=== PATIENT | male | born 1990 | race Caucasian/White ===

== ENCOUNTER 2021-01-06 19:46 | Observation (INO) | payer OTHER, SELFPAY ==
--- NOTE | ~2021-01-06 | CT_ITS ---
EXAMINATION: CT abdomen pelvis w con INDICATION: Right lower quadrant pain TECHNIQUE: Computed tomographic images of the abdomen and pelvis were obtained after the administrati on of 100 cc of Omnipaque 350 intravenous contrast. The dose-length product (DLP) was 766.87 mGy-cm. Automated exposure control and iterative reconstruction technique were employed. COMPARISON: None available FINDINGS: The lung bases are clear. The heart size is normal. The liver, spleen, pancreas, gallbladde r, and adrenal glands are normal. The kidneys are unremarkable. There is an appendicolith in the enla rged appendix which measures up to 11 mm. There is inflammatory fluid and edematous stranding of the periappendiceal fat without evidence of perforation or abscess. No pathologically enlarged abdominal or pelvic lymph nodes are identified. There are no dilated loops of bowel. IMPRESSION: 1. Acute appendicitis, uncomplicated. These findings were discussed with Dr. Deuce Uriostegui DO in the Emergency Department at 2120 hours on 01/06/2021. Reviewed, dictated and finalized at location A. IMPRESSION: 1. Acute appendicitis, uncomplicated. These findings were discussed with Dr. Miriam Uriostegui DO in the Emergency Department at 2120 hours on 01/06/2021.
[2021-01-06 20:07] VITALS: BP 128/77; PULSE 93; RESP 18; TEMP 36.9; O2SAT 97
--- NOTE | 2021-01-06 20:27 | ED.ABDPAIN ---
HPI - Abdominal Pain General Chief Complaint: Abdominal Pain Stated Complaint: upper abd pain, fever Time Seen by Provider: 01/06/21 20:19 Source: RN notes reviewed History of Present Illness HPI narrative: Patient presents to emergency department from urgent care for abdominal pain. Patient symptoms began yesterday states pain in the right lower quadrant described as sharp and stabbing. States pain does not radiate. States has been associate with a fever up to 101 at home states he took ibuprofen yesterday but nothing today. Denies any chest pain, shortness of breath nausea, vomiting, diarrhea or any other symptom Related Data Home Medications Medication Instructions Recorded Confirmed No Home Medications 02/24/20 02/24/20 Allergies Allergy/AdvReac Type Severity Reaction Status Date / Time No Known Allergies Allergy Verified 01/06/21 20:35 Review of Systems Review of Systems: General: Reports fever Eyes: Denies eye pain or visual change ENT: Denies congestion Respiratory: Denies shortness of breath or cough CV: Denies chest pain or palpitations GI: See HPI Musculoskeletal: Denies back pain or muscle pain Neuro: Denies numbness, tingling, weakness or focal weakness Skin: Denies rash Except as documented, all other systems reviewed and negative [facility] Past Medical History Medical History (Updated 01/06/21 @ 21:40 by Deuce Uriostegui DO) Patient denies significant medical history Family History Family History Father Carcinoma of colon Other Diabetes mellitus Family history of malignant neoplasm of breast Malignant neoplasm of prostate Social History Social History Smoking status: Never smoker Alcohol intake: current Exam Narrative: APPEARANCE: No acute distress, nontoxic, resting in bed HEENT: Normocephalic, atraumatic, OMM RESPIRATORY: No respiratory distress, clear to auscultation bilaterally with no rhonchi wheezing or rales CARDIOVASCULAR: RRR s murmur ABDOMINAL: Soft nondistended tender palpation right lower quadrant no tenderness right upper quadrant, left upper quadrant left lower quadrant no rebound or guarding MUSCULOSKELETAl: Moves all extremities. No clubbing, cyanosis or edema. NEURO: Awake and alert. Following commands, speech normal, no focal deficits SKIN:: Warm, dry. Normal Color PSYCHIATRIC: Normal affect/mood Course Course Emergency Course: Called and discussed with Dr. Victoria presentation and work-up. At this time request patient admitted his service started on Zosyn Discussed with patient and family results of workup and diagnosis. Discussed need for admission. Patient and family understand and agree to current treatment plan Vital Signs Vital signs: Vital Signs Temperature 98.5 F 01/06/21 20:07 Pulse Rate 93 01/06/21 20:07 Respiratory Rate 18 01/06/21 20:07 Blood Pressure 128/77 01/06/21 20:07 Pulse Oximetry 97 01/06/21 20:07 Temperature 98.5 F 01/06/21 20:07 Pulse Rate 93 01/06/21 20:07 Respiratory Rate 18 01/06/21 20:07 Blood Pressure 128/77 01/06/21 20:07 Pulse Oximetry 97 01/06/21 20:07 MDM - Abdominal Pain Lab Data Result diagrams: 01/06/21 20:19 01/06/21 20:19 Labs: Lab Results 01/06/21 01/06/21 01/06/21 Range/Units 20:19 20:19 21:19 WBC 11.1 H (4.5-10.0) K/mm3 RBC 5.14 (4.6-6.20) M/mm3 Hgb 15.7 (14.0-18.0) g/dL Hct 44.3 (42.0-52.0) % MCV 86.2 (80-100) fl MCH 30.5 (26-34) pg MCHC 35.4 (32-36) g/dl RDW 12.1 (11.5-14.5) % Plt Count 214 (150-375) k/mm3 MPV 8.9 (7.4-10.4) fl Immature Gran % (Auto) 0.4 (0-0.5) % Neut % (Auto) 75.8 H (45.5-73.1) % Lymph % (Auto) 11.5 L (18.3-44.2) % Whitley % (Auto) 10.9 H (2.6-8.5) % Eos % (Auto) 0.9 (0-4.4) % Baso % (Auto) 0.5 (0.2-1.2) % Lymph # (Auto) 1.
[2021-01-06 20:28] LABS: Basophils Absolute Auto 0.1 K/mm3 (0.0-0.1); Basophils Percent Auto 0.5 % (0.2-1.2); Eosinophils Absolute Auto 0.1 K/mm3 (0-0.3); Eosinophils Percent Auto 0.9 % (0-4.4); Hematocrit 44.3 % (42.0-52.0); Hemoglobin 15.7 g/dL (14.0-18.0); Immature Granulocyte Absolute 0.04 K/mm3 (0.00-0.031); Immature Granulocyte Percent A 0.4 % (0-0.5); Lymphocytes Absolute Auto 1.27 K/mm3 (0.9-3.2); Lymphocytes Percent Auto 11.5 % (18.3-44.2); Mean Corpuscular HGB Conc 35.4 g/dl (32-36); Mean Corpuscular Hemoglobin 30.5 pg (26-34); Mean Corpuscular Volume 86.2 fl (80-100); Mean Platelet Volume 8.9 fl (7.4-10.4); Monocytes Absolute Auto 1.2 K/mm3 (0.1-0.6); Monocytes Percent Auto 10.9 % (2.6-8.5); Neutrophils Absolute Auto 8.4 K/mm3 (1.3-6.7); Neutrophils Percent Auto 75.8 % (45.5-73.1); Platelet Count Result 214 k/mm3 (150-375); Red Blood Count 5.14 M/mm3 (4.6-6.20); Red Cell Distribution Width 12.1 % (11.5-14.5); White Blood Count 11.1 K/mm3 (4.5-10.0)
[2021-01-06 20:38] LABS: Alanine Aminotransferase 37 U/L (4-50); Albumin Level 4.6 g/dL (3.5-5.1); Alkaline Phosphatase 104 U/L (38-126); Anion Gap 14 mmol/L (8-16); Aspartate Amino Transferase 34 U/L (17-59); Bilirubin,Total 1.6 mg/dL (0.2-1.3); Blood Urea Nitrogen 11 mg/dL (9-20); Calcium 10.8 mg/dL (8.4-10.2); Carbon Dioxide 22 mmol/L (22-30); Chloride 98 mmol/L (98-107); Estimated CRCL calculation 96 ml/min; Estimated Glomerular Filt Rate > 60; Glucose 111 mg/dL (65-110); Lipase 71 U/L (23-300); Potassium 3.8 mmol/L (3.4-5.0); Sodium 134 mmol/L (137-145)
[2021-01-06] MEDS: KETOROLAC 30 MG/ML VIAL (*BKC) IV PUSH (20:46)
[2021-01-06] MEDS: SODIUM CHLORIDE 0.9% IV 1,000 ML 999 ML IV CONT (20:46)
[2021-01-06 21:32] LABS: Add Urine Microscopic? YES; Appearance Urine Clear (Clear); Bacteria Urine Trace /hpf; Bilirubin Urine Negative (Negative); Blood Urine 1+ (Negative); Color Urine Yellow (Yellow); Glucose Urine UA Negative (Negative); Ketones Urine Trace mg/dL (Negative); Leukocyte Esterase Ur Negative LEU/UL (Negative); Mucus Urine Rare /lpf; Nitrate Urine Negative (Negative); Protein Urine Negative (Negative); RBC Urine 0-2 /hpf (0-2); Specific Grav Ur 1.012 (1.001-1.035); Squamous Epithelial Cell Urine Rare /hpf (Few); Urobilinogen Urine Negative mg/dL (<2.0)
[2021-01-06] MEDS: MORPHINE SULFATE (*CRX) 4 MG/ML INJ IV PUSH (21:54)
[2021-01-06 21:57] VITALS: BP 107/71; PULSE 82; RESP 18; TEMP 37.9; O2SAT 99
[2021-01-06 22:15] VITALS: BP 122/61; PULSE 70; RESP 20; TEMP 36.4; O2SAT 99; BMI 32.5
--- NOTE | 2021-01-06 22:25 | ADMGEN ---
This patient, Mike Roca, was admitted to Medical Room 252-01. Patient/family oriented to hospital policies and general routines including ID bracelet, bed and alarms, visiting hours, pain management, procedures, bathroom and other care routines, personal items, smoking policy, room service/diet, and visiting hours. Information on how to activate the Rapid Response Team has been discussed. Patient/Family are encouraged to report perceived risks to care and to ask questions if they do not understand what they are told or what they should do.
[2021-01-06 22:30] VITALS: PULSE 82; RESP 18; O2SAT 99
[2021-01-06] MEDS: SODIUM CHLORIDE 0.9% IV 1,000 ML 125 ML IV CONT (22:51)
[2021-01-07] VITALS (14 sets, daily range): BP systolic 103–138; BP diastolic 60–86; PULSE 80–124; RESP 12–24; TEMP 36.9–39.6; O2SAT 92–100
[2021-01-07] MEDS: SODIUM CHLORIDE 0.9% IV 1,000 ML 125 ML IV CONT (05:10)
[2021-01-07 05:46] LABS: Basophils Percent Auto 0.3 % (0.2-1.2); Eosinophils Absolute Auto 0.2 K/mm3 (0-0.3); Eosinophils Percent Auto 1.5 % (0-4.4); Hematocrit 39.4 % (42.0-52.0); Hemoglobin 13.9 g/dL (14.0-18.0); Immature Granulocyte Absolute 0.06 K/mm3 (0.00-0.031); Immature Granulocyte Percent A 0.6 % (0-0.5); Lymphocytes Absolute Auto 0.98 K/mm3 (0.9-3.2); Lymphocytes Percent Auto 9.2 % (18.3-44.2); Mean Corpuscular HGB Conc 35.3 g/dl (32-36); Mean Corpuscular Hemoglobin 30.7 pg (26-34); Mean Platelet Volume 8.9 fl (7.4-10.4); Monocytes Absolute Auto 1.4 K/mm3 (0.1-0.6); Monocytes Percent Auto 12.7 % (2.6-8.5); Neutrophils Absolute Auto 8.1 K/mm3 (1.3-6.7); Neutrophils Percent Auto 75.7 % (45.5-73.1); Platelet Count Result 192 k/mm3 (150-375); Red Blood Count 4.53 M/mm3 (4.6-6.20); White Blood Count 10.7 K/mm3 (4.5-10.0)
[2021-01-07 05:57] LABS: Alanine Aminotransferase 31 U/L (4-50); Albumin Level 3.8 g/dL (3.5-5.1); Alkaline Phosphatase 80 U/L (38-126); Anion Gap 7 mmol/L (8-16); Aspartate Amino Transferase 32 U/L (17-59); Bilirubin,Total 1.6 mg/dL (0.2-1.3); Blood Urea Nitrogen 10 mg/dL (9-20); Calcium 9.1 mg/dL (8.4-10.2); Carbon Dioxide 25 mmol/L (22-30); Chloride 104 mmol/L (98-107); Estimated CRCL calculation 97 ml/min; Estimated Glomerular Filt Rate > 60; Glucose 102 mg/dL (65-110); Potassium 4.4 mmol/L (3.4-5.0); Sodium 136 mmol/L (137-145)
--- NOTE | 2021-01-07 06:12 | PM.IMHP ---
H&P: HPI History of Present Illness Date/Time: 01/07/21 06:12 Pt is a 30 y/o M presenting to ED c/o 1-2 d h/o progressively worsening RLQ abd pain. Pt reports pain is constant, sharp, and worse c movt. Pt reports associated fevers up to 102. Pt reports poor appetite over same time span. Pt denies previous episodes. Chief Complaint: acute appendicitis Review of Systems Constitutional: Constitutional: Reports anorexia, Denies body ache(s), Denies chills, Reports fatigue, Reports fever(s), Reports lethargy, Reports malaise, Reports poor appetite, Denies weakness, Denies weight gain and Denies weight loss Eyes: Eyes: Reports no additional eye complaints ENT: Reports system reviewed and no additional complaints, except as documented Cardiovascular: Cardiovascular: Reports no additional cardiovascular complaints Respiratory: Respiratory: Reports no additional respiratory complaints Gastrointestinal: Gastrointestinal: Reports as per HPI, Reports abdominal pain, Denies belching, Denies melena, Denies hematochezia, Denies change in bowel habits, Denies coffee ground emesis, Denies constipation, Reports GI cramping, Denies diarrhea, Denies nausea, Denies vomiting and Denies hematemesis Genitourinary: Genitourinary: Reports no additional male genitourinary complaints Musculoskeletal: Musculoskeletal: Reports no additional musculoskeletal complaints Integumentary/Breasts: Skin/Breast: Reports system reviewed and no additional complaints, except as docu Neurologic: Reports system reviewed and no additional complaints, except as documented Psychiatric: Psychiatric: Reports no additional psychiatric complaints Endocrine: Endocrine: Reports no additional endocrine complaints Hematologic/Lymphatic: Hematologic/Lymphatic: Reports no additional hematologic/lymphatic complaints Allergic/Immunologic: Allergic/Immunologic: Reports no additional allergic/immunologic complaints [facility] Past Medical History Medical History Patient denies significant medical history Family History Family History Father Carcinoma of colon Other Diabetes mellitus Family history of malignant neoplasm of breast Malignant neoplasm of prostate Social History Social History Smoking status: Never smoker Alcohol intake: current Drinks per week: 4 Substance use: never Substance use type: does not use Spiritual care concerns: No Comments pt denies previous abdominal surgery Meds Home Medications and Allergies Home Medications Medication Instructions Recorded Confirmed Type No Home Medications 02/24/20 01/06/21 History Allergies Allergy/AdvReac Type Severity Reaction Status Date / Time No Known Allergies Allergy Verified 01/06/21 20:35 Vital Signs Vital Signs - 24 hr 01/06/21 20:07 01/06/21 21:57 01/06/21 22:15 Temperature 36.9 C 37.9 C H 36.4 C L Pulse Rate 93 82 70 Respiratory Rate 18 18 20 Blood Pressure 128/77 107/71 122/61 Pulse Oximetry 97 99 99 01/06/21 22:30 Temperature Pulse Rate 82 Respiratory Rate 18 Blood Pressure Pulse Oximetry 99 Exam Const: General: cooperative, alert, awake, Physically active and acute distress mild Nutritional Appearance: overweight Orientation/consciousness: patient oriented x3 Limitations: no limitations HENMT: Head: normal to inspection, normocephalic and atraumatic Ears: hearing grossly normal bilaterally General nose exam: Normal external nose present Face and sinus: normal facial exam Mouth: Yes Normal oral and palatal mucosa present and Yes moist mucous membranes Eyes: General: appearance normal, both eyes and all related structures Pupils: Equal, round and reactive pupils present EOM: EOMs intact bilaterally Neck: Neck: normal visual inspection, full ROM and no lymphadenopathy Chest: Chest p
--- NOTE | 2021-01-07 09:46 | WPDHPUPDATE1 ---
History and Physical Update Update Date/Time: 01/07/21 09:46 History and Physical has been reviewed, including an updated exam of the patient. There are NO changes in the patient's condition. Risks, benefits, and alternatives have been discussed and questions answered. Patient agrees to proceed with procedure.
--- NOTE | 2021-01-07 10:12 | WPDANESEPPF ---
Anes - Initial Pre Proc Eval Procedure: Operation Date: 01/07/21 11:00 Proposed Procedures p Laparoscopic Appendectomy - Luly Victoria MD Date/Time: 01/07/21 10:12 Surgeon: Luly Victoria MD Pre Op Diagnosis: Appendicitis Patient Data Age: 30 Gender: M Height: 1.78 m Weight: 102.9 kg Last Vital Signs Temp 39.6 C H 01/07/21 06:00 Pulse 100 01/07/21 06:00 Resp 18 01/07/21 06:00 BP 122/60 01/07/21 06:00 Pulse Ox 94 01/07/21 06:00 Allergies Allergy/AdvReac Type Severity Reaction Status Date / Time No Known Allergies Allergy Verified 01/07/21 09:47 Home Medications Medication Instructions Recorded Confirmed Type No Home Medications 02/24/20 01/06/21 History Laboratory Tests 01/06/21 01/06/21 01/06/21 20:19 20:19 21:19 WBC 11.1 K/mm3 H K/mm3 (4.5-10.0) RBC 5.14 M/mm3 M/mm3 (4.6-6.20) Hgb 15.7 g/dL g/dL (14.0-18.0) Hct 44.3 % % (42.0-52.0) MCV 86.2 fl fl (80-100) MCH 30.5 pg pg (26-34) MCHC 35.4 g/dl g/dl (32-36) RDW 12.1 % % (11.5-14.5) Plt Count 214 k/mm3 k/mm3 (150-375) MPV 8.9 fl fl (7.4-10.4) Immature Gran % (Auto) 0.4 % % (0-0.5) Neut % (Auto) 75.8 % H % (45.5-73.1) Lymph % (Auto) 11.5 % L % (18.3-44.2) Meigs % (Auto) 10.9 % H % (2.6-8.5) Eos % (Auto) 0.9 % % (0-4.4) Baso % (Auto) 0.5 % % (0.2-1.2) Lymph # (Auto) 1.27 K/mm3 K/mm3 (0.9-3.2) Meigs # (Auto) 1.2 K/mm3 H K/mm3 (0.1-0.6) Eos # (Auto) 0.1 K/mm3 K/mm3 (0-0.3) Baso # (Auto) 0.1 K/mm3 K/mm3 (0.0-0.1) Abs Immat Gran (auto) 0.04 K/mm3 H K/mm3 (0.00-0.031) Absolute Neuts (auto) 8.4 K/mm3 H K/mm3 (1.3-6.7) Absolute Nucleated RBC 0.0 K/mm3 K/mm3 (0.0-0.012) Nucleated RBC % 0.0 % % (0.0-0.2) Sodium 134 mmol/L L mmol/L (137-145) Potassium 3.8 mmol/L mmol/L (3.4-5.0) Chloride 98 mmol/L mmol/L (98-107) Carbon Dioxide 22 mmol/L mmol/L (22-30) Anion Gap 14 mmol/L mmol/L (8-16) BUN 11 mg/dL mg/dL (9-20) Creatinine 1.20 mg/dL mg/dL (0.7-1.3) Estim Creat Clear Calc 96 ml/min ml/min Estimated GFR > 60 (59 - ) Glucose 111 mg/dL H mg/dL (65-110) Calcium 10.8 mg/dL H mg/dL (8.4-10.2) Total Bilirubin 1.6 mg/dL H mg/dL (0.2-1.3) AST 34 U/L U/L (17-59) ALT 37 U/L U/L (4-50) Alkaline Phosphatase 104 U/L U/L (38-126) Total Protein 8.0 g/dL g/dL (6.3-8.2) Albumin 4.6 g/dL g/dL (3.5-5.1) Lipase 71 U/L U/L (23-300) Urine Color Yellow (Yellow) Urine Appearance Clear (Clear) Urine pH 6.0 (5.0-9.0) Ur Specific [place] 1.012 (1.001-1.035) Urine Protein Negative mg/dL mg/dL (Negative) Urine Glucose (UA) Negative mg/dL mg/dL (Negative) Urine Ketones Trace mg/dL mg/dL (Negative) Ur Blood (Man) 1+ H (Negative) Urine Nitrate Negative (Negative) Urine Bilirubin Negative (Negative) Urine Urobilinogen Negative mg/dL mg/dL (<2.0) Leukocyte Esterase Rfl Negative STEVE/UL SETVE/UL (Negative) Urine RBC 0-2 /hpf /hpf (0-2) Ur Squamous Epith Cells Rare /hpf /hpf (Few) Urine Bacteria Trace /hpf /hpf Urine Mucus Rare /lpf /lpf 01/07/21 01/07/21 05:30 05:30 WBC 10.7 K/mm3 H K/mm3 (4.5-10.0) RBC 4.53 M/mm3 L M/mm3 (4.6-6.20) Hgb 13.9 g/dL L g/dL (14.0-18.0) Hct 39.4 % L % (42.0-52.0) MCV 87.0 fl fl (80-100) MCH 30.7 pg pg (26-34) MCHC 35.3 g/dl g/dl (32-36) RDW 12.0 % % (11.5-14.5) Plt Count 192 k/mm3
[2021-01-07] MEDS: LACTATED RINGERS 1,000 ML 30 ML IV CONT ×2 (10:32→11:35)
--- NOTE | 2021-01-07 12:00 | P.OP_ITS ---
Procedure Note - Detailed Date of Procedure 01/07/21 Pre-op Diagnosis Appendicitis Post-op Diagnosis other (perforated appendictis) Procedure Performed Laparoscopic appendectomy, washout intra-abdominal abscess Surgeon Luly Victoria MD Anesthesia general Indications 30-year-old male presenting with acute appendicitis Findings acute perforated appendicitis with perforation near the tip of the appendix, small retro appendiceal abscess Description of Procedure The patient was taken to the operating room and placed in the supine position. After adequate induction of general anesthesia, the patient was prepped and draped in the normal sterile fashion. A time-out was then done to verify the patient's identity, as well as the procedure being performed. I began by making a 5 mm incision in the infraumbilical region, through this a Veress needle was placed in the peritoneal cavity. CO2 gas was then insufflated and after adequate pneumoperitoneum was achieved the Veress needle was removed. Then plac ed a 5 mm Optiview trocar under direct visualization into the peritoneal cavity. I then insufflated through this trocar site and the endoscope was placed into the trocar. Under direct visualization, placed 2 further 5 mm suprapubic port as well as an additional 12 mm port in the left lower abdomen. At this point identified the cecum, I retracted the cecum both medially and superiorly allowing me to expose the appendix. The appendix was noted to be very dilated and inflamed especially towards the tip. The appendix was noted to be very adherent to the right lateral sidewall as well as the ileum. I was able to bluntly dissect the appendix from these adhesions. Once the appendix was mobilized, it was noted that there was a small perforation near the tip of the appendix. The tip of the appendix was also noted to be necrotic appearing. There was a small fluid collection, abscess in the retroappendiceal pocket. I suctioned this fluid and copiously washed out this pocket. No other fluid collections were noted. I then was able to locate the base of the appendix with the cecum. I created a window with the [place] dissector between the appendix itself and the mesoappendix. I then transected the mesoappendix with a white vascular staple load x 2. The Endo-VILMA was then reloaded with a blue staple load and I transected the base of the appendix. Once the specimen was complete ly detached, an endo-pouch was placed into the 12 mm port site and the specimen was removed through the endo-pouch. The appendiceal specimen will be sent to pathology for further review. I then copiously irrigated the right lower quadrant. Hemostasis was noted at both staple lines no other pathology was seen in this area. I then moved the camera to the suprapubic port to check our its port of entry. No iatrogenic injury or other pathology was noted in the upper abdomen. I then closed the 12 mm port site with a Ramirez code and 0 Vicryl suture under direct visualization. At this point, the abdomen was desufflated and all ports were removed. All port sites were closed with 4 Monocryl subcuticular suture. Dermabond was placed on all wounds. The patient tolerated the procedure well and was extubated in the operating room postop. He will be sent to the recovery room in stable condition. Estimated Blood Loss 10 Drains No Packing No Pathology yes Complications No immediate complications Condition stable Disposition PACU
[2021-01-07] MEDS: fentaNYL CITRATE INJ (*CRX) 100 MCG/2 ML VIAL 25 MCG IV PUSH ×2 (12:29→12:33)
--- NOTE | 2021-01-07 13:03 | SUR.PHASEI ---
1250 sbar faxed floor notified
--- NOTE | 2021-01-11 13:24 | PM.DS ---
DS: Admitting Diagnosis Admitting Diagnosis acute appendicitis DS: Discharge Diagnosis Discharge Diagnosis (1) Acute perforated appendicitis: Code(s): K35.32 - Acute appendicitis with perforation and localized peritonitis, without abscess Status: Acute Assessment and Plan: s/p lap appy, washout, doing well, home c po abx, analgesia, f/u 2 wks DS: Summary Hospital Course Reason for hospitalization: acute appendicitis Hospital Course: pt is a 31 y/o M presenting to hospital c/o severe RLQ pain x 1-2 days. Pt has workup, including CT, showing acute appendicitis. Pt admitted and started on IV abx. Upon evaluation the following am, decision to proceed c urgent appendectomy. Pt taken to OR and lap appy c drainage and washout intraabdominal abscess performed, please see full operative report for details. Postop, pt did well and will be dc'd c routine postop care instructions as well as rx for po abx and analgesia. Status at Discharge Functional status at discharge: independent ambulation Overall status at discharge: patient is progressing back to baseline Time Spent with Patient Time attestation: Total time spent providing and/or coordinating discharge services: Time spent: Less than 30 minutes Exam Const: General: cooperative and no acute distress Nutritional Appearance: obese Orientation/consciousness: patient oriented x3 Limitations: no limitations Resp: Auscultation: clear to auscultation bilaterally Cardio: Rate: regular rate Rhythm: regular rhythm GI: Inspection: normal to inspection, distended and incision GI Palp: Yes Soft to palpation, Yes Tenderness to palpation present (GI) and No Guarding due to palpation present (GI) DS: Data Data Completed and Pending Completed studies during hospitalization: Pending at discharge 01/07/21 11:06 Surgical [PTH] Routine Discharge Plan Discharge Attending physician on discharge: Luly Victoria Consulting providers: Kendall Quezada Discharging Clinician: Luly Victoria Anticipated Discharge Date/Time: 01/07/21 16:00 Patient Disposition: Other Activity: other - see discharge instructions Diet: as tolerated Wound Care Instructions: follow printed instructions Discharge Instructions: DISCHARGE INSTRUCTION SHEET FOR HERNIA, GALLBLADDER AND APPENDIX SURGERIES DR. VICTORIA PATIENT TO TAKE HOME 1. May shower in 24 hours, no soaking in bath x 2weeks. 2. Call office for: Wound increasingly painful or bleeding Vomiting Fever of greater than 101 degrees 3. If no bowel movement for three days, take 1 oz. (30 ml) Milk of Magnesia or MiraLax 17g 1 to 2 times daily. 4. No heavy lifting > 10-15 pounds x 6 weeks for hernia repairs and 2 weeks for laparoscopic cholecystectomy or appendectomy. 5. No driving for 3 days or while taking narcotic pain medications. 6. Ice to surgical site for 48 hours (30 min on, then 30 min off). 7. Up walking 10-30 minutes three times per day. 8. Resume previous home medications. 9. Follow-up 10-14 days in office for wound check or as previously scheduled. ([phone]) 10. Oral pain medications prescription to be sent to pharmacy. Take Tylenol 500mg every 6 hours and Ibuprofen 600mg every 6 hours for the first 2 days, then as needed. 11. NUTRITION: Start out by drinking fluids and increase your diet as tolerated. If you experience nausea, try dry toast, crackers, and 7-UP. If nausea or vomiting persists, contact your surgeon?s office. 12. Gallbladders-Low Fat Diet for 2 weeks (send care note of low fat diet) 13. Inguinal Hernias-wear scrotal support for 48 hours 14. Abdominal Hernias-if sent home with abdominal binder, wear for the first 2 weeks (may remove to shower or at night to sleep).
== END 2021-01-07 18:06 | disposition home or self-care (01) ==
LOC: ANHED 21:40 → ANH2MED 21:57
PROVIDERS: Emergency Medicine; Admitting Provider Surgery; Emergency Provider Emergency Medicine; PCP Family Medicine; Visit Provider Surgery
PROC: 0DTJ4ZZ Resection of Appendix, Percutaneous Endoscopic Approach (ICD-10-PCS; CPT 44970; principal; 2021-01-07 11:00)
DX: K35.33 Acute appendicitis with perforation, localized peritonitis, and gangrene, with abscess (principal); I96 Gangrene, not elsewhere classified
CPT/HCPCS: 44970; 36415; 74177; 80053; 81001; 83690; 85025; 88304; 96361; 96365; 96366; 96367; 96374; 96375; 96376; 99285; G0378; J0131; J1170; J1885; J2250; J2270; J2543; J3010; J7030; J7120; Q9967

== ENCOUNTER 2025-04-18 13:35 | Outpatient (CLI) | payer OTHER, SELFPAY ==
--- OUTSIDE RECORDS SUMMARY | 2025-04-18 13:42 | XMS_ITS | Clinical Summary ---
Author Organization [facility] Medical Office Building A Address [address] [place] [address] Care Team Providers Care Business Analysis Professional Name Role Phone Amelia Lima NP Primary Care Provider [phone] Allergies No known active allergies Medications Asmanex HFA 200 mcg/actuation inhaler 12/11/2023 Active Active Problems Problem Noted Date Diagnosed Date Class 1 obesity without seri ous comorbidity with body mass index (BMI) of 30.0 to 30.9 in adult 03/29/2023 Assessment & Plan (03/29/2023 10:48 AM CDT): Acute problem- this is a new problem and new patient Encouraged to follow heart healthy diet- low fat, low carb, low chol Encouraged to increase activity to 150 min/week BMI Follow-up includes: nutrition counseling, exercise counseling, and education provided. Annual physical exam 03/29/2023 Assessment & Plan (04/15/2024 8:35 PM PRODUCT CONTROLLER): -Recommended: Healthy diet. Avoiding junk food/fast food. -30 minutes of exercise most days of the week. Increase to 45 minutes for weight loss. Health Maintenance reviewed - utd Labs ordered. -Influenza vaccine every year Recommend: -There are no preventive care reminders to display for this patient. -F/u in 1 year for Annual PE or sooner if needed Assessment & Plan (03/29/2023 10:47 AM CDT): Recommend flu vaccine every March- received 03/28/23, recommend tetanus booster every 10 years- patient wants to wait- states he thinks he has had it. GATO needed to obtain records from previous PCP Fasting labs today F/u 1 year for annual Biometrics form-initiated- will complete when lab results are available Family history of colon cancer in father 023 Assessment & Plan (03/29/2023 10:45 AM CDT): This is a new patient Strong family hx of colo cancer in father at age 49 Will plan to screen for colon cancer at age 39 Continue to monitor Family history of prostate cancer 03/29/2023 Assessment & Plan (03/29/2023 10:44 AM CDT): This is a new patient- strong family hx Will order PSA today- patient request Encouraged to avoid fluid intake at least 2 hours before bedtime to help avoid frequent trips to bathroom at night Continue to monitor Nocturia 03/29/2023 Assessment & Plan (03/29/2023 10:49 AM CDT): Acute problem- this is a new problem and new patient Encouraged to avoid excess fluids at least 2 hours before bedtime PSA ordered- family hx Continue to monitor Encounters Date Type Department Care Team Description 02/05/2025 Results Follow-Up [facility] Primary Care at [address] [address] Amelia Lima NP CBC with auto differential, Comprehensive metabolic panel, Lipid panel, Additional followed-up results: 2 01/24/2025 Orders Only [facility] Primary Care at [address] [phone] Amelia Lima NP Screening for deficiency anemia (Primary Dx); Screening for metabolic disorder; Lipid screening; Thyroid disorder screen; Diabetes mellitus screening from Last 3 Months Immunizations Immunization Administration Dates Next Due DTaP 01/04/1996, 4,1991,1991,0 1991 Hep B, Adolescent or Pediatric 09/29/2000,1999,03/24/2000 HiB 06/29/1992,1991,1991 ,1991 Influenza, Unspecified 04/01/2024,2022,03/29/2022(Deferred: Patient Refused) MMR 01/04/1996,06/29/1992 OPV 01/04/1996,10/13/1993,1991 ,1991 Tdap 02/24/2020 Social History Tobacco Use Types Packs/Day Years Used Date Smoking Tobacco: Never Tobacco Cessation:Counseling Given: Not Answered AUDIT-C Answer Date Recorded Q1: How often do you have a drink containing alc ohol? Never 04/15/2024 Average Number of Drinks Not on file 024 Frequency of Binge Drinking Not on file 09/2023 PHQ-2 Answer Date Recorded PHQ-2 Total Score (If total score is 3 or more points, staff should administer the PHQ-9) 0 04/15/2024 Sex and Gender Information Value Date Recorded Sex Assigned at Not on file Legal Sex Male 3:27 AM PRODUCT CONTROLLER Gender Identity Not on file Sexual Orientation Not on file Last Filed Vital Signs Vital Sign Reading Time Taken Comments Blood Pressure 126/88 04/15/2024 4:23 PM PRODUCT CONTROLLER Pulse 78 04/15/2024 4:23 PM PRODUCT CONTROLLER Temperature 36.6 C (97.8 F) 04/15/2024 4:23 PM PRODUCT CONTROLLER Respiratory Rate 16 04/15/2024 4:23 PM PRODUCT CONTROLLER Oxygen Saturation 97% 04/15/2024 4:23 PM PRODUCT CONTROLLER Inhaled Oxygen Concentration - - Weight 104.2 kg (229 lb 12.8 oz) 04/15/2024 4:23 PM PRODUCT CONTROLLER Height 175.3 cm (5' 9) 04/15/2024 4:23 PM PRODUCT CONTROLLER Body Mass Index 33.94 04/15/2024 4:23 PM PRODUCT CONTROLLER Plan of Treatment Health Maintenance Due Date Last Done Comments HPV Vaccines (1 - 3-dose SCDM series) 2018 Covid-19 Vaccine ( season) 2025 09/12/2020, 08/21/2020 Influenza Vaccine (#1) 2025 04/01/2024, 2022 Depression Screening 04/15/2025 04/15/2024, 03/29/20 23 Regular Well Visit/Exam 18-64 04/15/2025 04/15/2024, 03/29/2023, 03/29/2023 DTaP/Tdap/Td Vaccine (7 - Td or Tdap) 02/23/2030 02/24/2020, 01/04/1996, 10/13/1993, Additional history exists Hepatitis B Screening Completed 09/29/2000 , 04/28/2000, 03/24/2000 Hepatitis C Screening Completed 03/31/2023 Pneumococcal vaccine <65 Aged Out No longer eligible based on patient's age to complete this topic Varicella Vaccines Discontinued Procedures Procedure Name Priority Date/Time Associated Diagnosis Comments HEMOGLOBIN A1C Routine 02/03/2025 11:46 AM CDT Diabetes mellitus screening THYROID FUNCTION CASCADE Routine 02/03/2025 11:46 AM CDT Thyroid disorder screen LIPID PANEL Routine 02/03/2025 11:46 AM CDT Lipid screening COMPREHENSIVE METABOLIC PANEL Routine 02/03/2025 11:46 AM CDT Screening for metabolic disorder CBC WITH AUTO DIFFERENTIAL Routine 02/03/2025 11:46 AM CDT Screening for deficiency anemia HEPATITIS PANEL, ACUTE Routine 10:11 AM CDT Preventative health care Family history of prostate cancer Family history of colon cancer from Last 3 Months or Most Recently Relevant to Health Maintenance Results * Thyroid Function [place] (02/03/2025 11:46 AM CDT) [facility] TSH 1.900 0.450 - 4.500 uIU/mL [facility] - 01 Comment: No apparent thyroid disorder. Additional testing not indicated. In rare instances, Secondary Hypothyroidism as well as Subclinical Hypothyroidism have been reported in some patients with normal TSH values. Blood 02/03/2025 11:4 6 AM CDT 02/03/2025 Narrative [facility] - 02/04/2025 1:10 PM CDT Performed at: [address] [place] [id number] Recruiting Assistant: Contreras Bang PhD, Phone: [phone] Amelia Lima NP LAB BLOOD ORDERABLES Final Re sult [facility] - 01 * CBC with auto differential (02/03/2025 11:46 AM CDT) WBC 6.4 3.4 - 10.8 x10E3/uL [facility] - 01 RBC 4.97 4.14 - 5.80 x10E6/uL [facility] - 01 Hgb 15.3 13.0 - 17.7 g/dL [facility] - 01 Hct 45.7 37.5 - 51.0 % [facility] - 01 MCV 92 79 - 97 fL [facility] - 01 MCH 30.8 26.6 - 33.0 pg [facility] - 01 MCHC 33.5 31.5 - 35.7 g/dL [facility] - 01 Rdw 12.2 11.6 - 15.4 % [facility] - 01 Platelets 291 150 - 450 x10E3/uL [facility] - 01 Neutrophils pct 55 Not Estab. % [facility] - 01 Lymphs pct 33 Not Estab. % [facility] - 01 Monocytes pct 8 Not Estab. % [facility] - 01 Eosinophils pct 3 Not Estab. % [facility] - 01 Basophil pct 1 Not Estab. % [facility] - 01 Neutrophil abs 3.5 1.4 - 7.0 x10E3/uL [facility] - 01 Lymphs (Absolute) 2.1 0.7 - 3.1 x10E3/uL [facility] - 01 Monocyte abs 0.5 0.1 - 0.9 x10E3/uL [facility] - 01 Eosinophils, abs 0.2 0.0 - 0.4 x10E3/uL [facility] - 01 Basophils, abs 0.1 0.0 - 0.2 x10E3/uL [facility] - 01 Immature Granulocytes 0 Not Estab. % [facility] - 01 Immature Grans (Abs) 0.0 0.0 - 0.1 x10E3/uL [facility] - 01 Blood 02/03/2025 11:4 6 AM CDT 02/03/2025 Narrative [facility] - 02/04/2025 7:09 AM CDT Performed at: [address] [id number] Recruiting Assistant: Contreras Bang PhD, Phone: [phone] Amelia Lima NP LAB BLOOD ORDERABLES Final Re sult Performing Organization Address [facility] Co de Phone Number [facility] - * Hemoglobin A1c (02/03/2025 11:46 AM CDT) Pathologist [facility] Hgb A1C 4.9 4.8 - 5.6 % [facility] - Comment: Prediabetes: 5.7 - 6.4 Diabetes: >6.4 Glycemic control for adults with diabetes: <7.0 Blood 02/03/2025 11:4 6 AM CDT 02/03/2025 Narrative [facility] - 02/04/2025 11:11 AM CDT Performed at: [address] [id number] Recruiting Assistant: Contreras Bang PhD, Phone: [phone] Amelia Lima NP LAB BLOOD ORDERABLES Final Re sult Performing Organization Address [facility] de Phone Number [facility] * (ABNORMAL) Lipid panel (02/03/2025 11:46 AM CDT) [facility] Cholesterol 161 100 - 199 mg/dL [facility] - 01 Triglycerides 62 0 - 149 mg/dL [facility] - 01 HDL Cholesterol 34(L) >39 mg/dL [facility] - 01 VLDL 12 5 - 40 mg/dL [facility] - 01 LDL, calculated 115(H) 0 - 99 mg/dL [facility] - 01 Blood 02/03/2025 11:4 6 AM CDT 02/03/2025 Narrative [facility] - 02/04/2025 12:10 PM CDT Performed at: [address] [id number] Recruiting Assistant: Contreras Bang PhD, Phone: [phone] Amelia Lima NP LAB BLOOD ORDERABLES Final Re sult Performing Organization Address City/[facility]/ZIP Co de Phone Number [facility] - 01 * (ABNORMAL) Comprehensive metabolic panel (02/03/2025 11:46 AM CDT) Pathologist [facility] Glucose 88 70 - 99 mg/dL [facility] - 01 BUN 12 6 - 20 mg/dL [facility] - 01 Creatinine, Serum 0.90 0.76 - 1.27 mg/dL [facility] - 01 eGFR 115 >59 mL/min/1.7 3 [facility] - 01 BUN/creat ratio 13 9 - 20 [facility] - 01 Sodium 140 134 - 144 mmol/L [facility] - 01 Potassium, sr 4.8 3.5 - 5.2 mmol/L [facility] - 01 Chloride 101 96 - 106 mmol/L [facility] - 01 CO2 20 20 - 29 mmol/L [facility] - 01 Calcium 10.5(H) 8.7 - 10.2 mg/dL [facility] - 01 Protein, sr 7.1 6.0 - 8.5 g/dL [facility] - 01 Albumin 4.7 4.1 - 5.1 g/dL [facility] - 01 Globulin, Total 2.4 1.5 - 4.5 g/dL [facility] - 01 Bilirubin, Total 0.5 0.0 - 1.2 mg/dL [facility] - 01 Alk phos 74 44 - 121 IU/L [facility] - 01 AST 14 0 - 40 IU/L [facility] - 01 ALT 25 0 - 44 IU/L [facility] - 01 Blood 02/03/2025 11:4 6 AM CDT 02/03/2025 Narrative [facility] - 02/04/2025 12:10 PM CDT Performed at: [address] [place] [id number] Recruiting Assistant: Contreras Bang PhD, Phone: [phone] Amelia Lima NP LAB BLOOD ORDERABLES Final Re sult Performing Organization Address City/[facility]/ZIP Co de Phone Number [facility] - 01 * Hepatitis panel, acute Blood (03/31/2023 10:11 AM CDT) Hep A IgM Negative Negative [facility] - 01 HepBsAg Negative Negative [facility] - 01 Hep B core IgM Negative Negative [facility] - 01 Hep C Ab Non Reactive Non Reactive [facility] - 01 Blood 03/31/2023 10:1 1 AM CDT 03/31/2023 Narrative [facility] - 04/01/2023 7:10 AM CDT Performed at: - [facility] [place] [id number] Recruiting Assistant: Contreras Bang PhD, Phone: [phone] Specimen Comment: A courtesy copy of this report has been sent to [phone] us Ana Zuleta NP LAB MICROBIOLOGY - GENERAL ORD ERABLES Final Result [facility] - 01 from Last 3 Months or Most Recently Relevant to [place] [address] [facility] HMO/PPO Address: [facility] [address] [place] [address] Care Teams Business Analysis Professional Relationship Specialty Start Date End Date Amelia Lima NP [address] [place] [address] PCP - General Family Medicine 04/15/24
== END 2025-04-18 13:36 | disposition home or self-care (01) ==
LOC: ANHSURGERY 13:40
PROVIDERS: PCP Nurse Practitioner Family; Visit Provider Surgery
DX: Z01.818 Encounter for other preprocedural examination (principal); K40.90 Unilateral inguinal hernia, without obstruction or gangrene, not specified as recurrent
CPT/HCPCS: 36415; 86850; 86900; 86901

== ENCOUNTER 2025-04-30 00:35 | Day surgery (SDC) | payer OTHER, SELFPAY ==
--- NOTE | 2025-04-17 15:06 | SUR.PREOP ---
[facility] has started construction of its new state of the art ER which will open Spring 2026. With this, we anticipate parking may be a challenge for some our surgical patients and families. Parking spaces are limited but are available for all Surgical, obstetrics, and ER patients sharing this lot. If you arrive and find you are having a hard time finding a parking space, please note that we understand the challenges, please drive around the hospital and park near Hospital Entrance 1. When you enter this entrance, you can ask a volunteer to direct or take you back to the surgical waiting area to check in. We appreciate everyone?s understanding of these expected challenges while we build for your future. Report to the Outpatient Waiting Room, entrance under the green pavilion located off [address], at time _11AM_ on date __04/30/25__. Planned Procedure Time: __1PM___.? Time changes happen often and if your time is changed the preop area will call you the afternoon before. - You and your visitor will be asked to self-screen and do not enter if you have any COVID symptoms. Please call surgeon if you need to reschedule. - A mask is optional within the hospital at this time. Patients may have clear liquids (water, carbonated beverages, clear teas, apple juice) until 3 hours prior to surgery with a maximum of 20 ounces. - No food from midnight until time of surgery and no smoking, or chewing tobacco (or any form of nicotine). No chewing gum, candy or mints. Take only the following medications with a SIP of water on the morning of surgery: _escitalopram__ DO NOT STOP ANY OF YOUR OTHER PRESCRIPTION MEDICATIONS PRIOR TO SURGERY EXCEPT THE FOLLOWING Hold all vitamins and supplements for 3 days per anesthesiologist. Medications to discontinue per physician _none_ Date to take last dose__n/a__ Please no make-up, nail khmer, hairspray, perfume, deodorant, or body powder the day of surgery.? No jewelry (including any body piercings) or valuables the day of surgery, leave them at home.? Please take a shower or bath the night before, or the morning of, surgery with an antibacterial soap.? Wear comfortable, loose fitting clothing.? Children are encouraged to wear pajamas. - Jewelry must be removed prior to entering the operating room.? Rings and piercings that are not removed may be cut off. - The hospital will not accept responsibility for valuables.? - Please leave all valuables, including medications, at home the day of surgery. If you are going home after surgery, a licensed city driver must drive you home.? - NO public transportation without another adult if you receive anesthesia. - We recommend that an adult stay with you for 24 hours following discharge. - We also recommend that you do not drive, make important decision, drink alcoholic beverages, or take any drugs that were not prescribed by your health care provider for at least 24 hours after your discharge time. Follow any additional instructions given to you from your surgeon. Telephone instructions given to _Mike_and asked if any additional questions and then verbalized understanding. Patient advised to call surgeon office or pre surgery nurse liaison [phone] if any additional questions.
[2025-04-30] VITALS (8 sets, daily range): BP systolic 104–133; BP diastolic 58–77; PULSE 54–83; RESP 14–20; TEMP 36.6–36.8; O2SAT 98–100; BMI 29.7
--- OUTSIDE RECORDS SUMMARY | 2025-04-30 05:26 | XMS_ITS | Clinical Summary ---
Author Organization [facility] Medical Office Building A Address [address] [place] [address] Care Team Providers Care Pharmacy Sales Representative Name Role Phone Amelia Lima NP Primary Care Provider [phone] Allergies No known active allergies Medications Asmanex [...] 03/29/2023 Assessment & Plan (04/15/2024 8:35 PM BUREAU CHIEF): -Recommended: Healthy diet. Avoiding junk food/fast food. [...] states he thinks he has had it. AGTO needed to obtain records from previous PCP [...] Department Care Team Description 02/05/2025 Results Follow-Up [facility] Primary Care at [address] [address] Amelia Lima NP CBC with auto differential, Comprehensive metabolic panel, Lipid panel, Additional followed-up results: 2 from Last 3 Months Immunizations Immunization Administration [...] on file Legal Sex Male 3:27 AM BUREAU CHIEF Gender Identity Not on file Sexual Orientation Not on file Last Filed Vital Signs Vital Sign Reading Time Taken Comments Blood Pressure 126/88 04/15/2024 4:23 PM BUREAU CHIEF Pulse 78 04/15/2024 4:23 PM BUREAU CHIEF Temperature 36.6 C (97.8 F) 04/15/2024 4:23 PM BUREAU CHIEF Respiratory Rate 16 04/15/2024 4:23 PM BUREAU CHIEF Oxygen Saturation 97% 04/15/2024 4:23 PM BUREAU CHIEF Inhaled Oxygen Concentration - - Weight 104.2 kg (229 lb 12.8 oz) 04/15/2024 4:23 PM BUREAU CHIEF Height 175.3 cm (5' 9) 04/15/2024 4:23 PM BUREAU CHIEF Body Mass Index 33.94 04/15/2024 4:23 PM BUREAU CHIEF Plan of Treatment Health Maintenance Due Date Last Done Comments HPV Vaccines (1 - 3-dose SCDM series) 2018 Covid-19 Vaccine ( season) 2025 09/12/2020, 08/21/2020 Influenza Vaccine (#1) 2025 04/01/2024, 2022 Depression Screening 04/15/2025 04/15/2024, 03/29/20 Regular Well Visit/Exam 18-64 04/15/2025 04/15/2024, 03/29/2023, [...] to Health Maintenance Results * Thyroid Function [place] (02/03/2025 11:46 AM CDT) [facility] TSH 1.900 0.450 - 4.500 uIU/mL [facility] - 01 Comment: No apparent thyroid disorder. Additional testing not indicated. In rare instances, Secondary Hypothyroidism as well as Subclinical Hypothyroidism have been reported in some patients with normal TSH values. Blood 02/03/2025 11:4 6 AM CDT 02/03/2025 Narrative [facility] - 02/04/2025 1:10 PM CDT Performed at: [address] [place] [id number] Banquet Captain: Contreras Bang PhD, Phone: [phone] us Amelia Lima NP LAB BLOOD ORDERABLES Final Re sult [facility] - 01 * CBC with auto differential (02/03/2025 11:46 AM CDT) [facility] WBC 6.4 3.4 - 10.8 x10E3/uL [facility] [...] - 02/04/2025 7:09 AM CDT Performed at: [facility] [id number] Banquet Captain: Contreras Bang PhD, Phone: [phone] Amelia Lima NP LAB BLOOD ORDERABLES Final Re sult Performing Organization Address [facility] de Phone Number [facility] - * Hemoglobin A1c (02/03/2025 11:46 AM CDT) [facility] Hgb A1C 4.9 4.8 - 5.6 % [facility] - 01 Comment: Prediabetes: 5.7 - 6.4 Diabetes: >6.4 Glycemic control for adults with diabetes: <7.0 Blood 02/03/2025 11:4 6 AM CDT 02/03/2025 Narrative [facility] - 02/04/2025 11:11 AM CDT Performed at: [address] [id number] Banquet Captain: Contreras Bang PhD, Phone: [phone] Amelia Lima NP LAB BLOOD ORDERABLES Final Re sult Performing Organization Address [facility] de Phone Number [facility] - 01 * (ABNORMAL) Lipid panel (02/03/2025 11:46 AM CDT) [facility] Cholesterol 161 100 - 199 mg/dL [facility] - 01 Triglycerides 62 0 - 149 mg/dL [facility] - 01 HDL Cholesterol 34(L) >39 mg/dL [facility] - 01 VLDL 12 5 - 40 mg/dL [facility] - 01 LDL, calculated 115(H) 0 - 99 mg/dL [facility] - 01 Blood 02/03/2025 11:4 6 AM CDT 02/03/2025 Narrative [facility] - 02/04/2025 12:10 PM CDT Performed at: [address] [id number] Banquet Captain: Contreras Bang PhD, Phone: [phone] Amelia Lima NP LAB BLOOD ORDERABLES Final Re sult Performing Organization Address [facility] Co de Phone Number [facility] - * (ABNORMAL) Comprehensive metabolic panel (02/03/2025 11:46 AM CDT) Pathologist [facility] Glucose 88 70 - 99 mg/dL [facility] [...] - 02/04/2025 12:10 PM CDT Performed at: [facility] [id number] Banquet Captain: Contreras Bang PhD, Phone: [phone] us Amelia Lima NP LAB BLOOD ORDERABLES Final Re sult [facility] - 01 * Hepatitis panel, acute Blood (03/31/2023 10:11 AM CDT) Pathologist [facility] Hep A IgM Negative Negative [facility] - 01 HepBsAg Negative Negative [facility] - 01 Hep B core IgM Negative Negative [facility] - 01 Hep C Ab Non Reactive Non Reactive [facility] - 01 Blood 03/31/2023 10:1 1 AM CDT 03/31/2023 Narrative [facility] - 04/01/2023 7:10 AM CDT Performed at: 01 - [facility] [address] [id number] Banquet Captain: Contreras Bang PhD, Phone: [phone] Specimen Comment: A courtesy copy of this report has been sent to [phone] us Ana Zuleta NP LAB MICROBIOLOGY - GENERAL ORD ERABLES Final Result [facility] - 01 from Last 3 Months or Most Recently Relevant to [place] [address] [facility] Care Teams Pharmacy Sales Representative Relationship Specialty Start Date End Date Amelia Lima NP [address] [place], [place] [id number] PCP - General Family Medicine 04/15/24
--- NOTE | 2025-04-30 10:29 | WPDHPUPDATE1 ---
History and Physical Update Update Date/Time: 04/30/25 10:29 History and Physical has been reviewed, including an updated exam of the patient. There are NO changes in the patient's condition. Risks, benefits, and alternatives have been discussed and questions answered. Patient agrees to proceed with procedure.
[2025-04-30] MEDS: LACTATED RINGERS 1,000 ML 30 ML IV CONT ×2 (11:15→14:55)
[2025-04-30] MEDS: ACETAMINOPHEN 500 MG TABLET 1000 MG PO (11:30)
[2025-04-30] MEDS: KETOROLAC 15 MG/ML VIAL (*BKC) IV PUSH (11:30)
--- NOTE | 2025-04-30 12:46 | WPDANESEPPF ---
Anes - Initial Pre Proc Eval Procedure: Operation Date: 04/30/25 13:00 Proposed Procedures p Robotic Right Inguinal Hernia Repair with Mesh - Luly Victoria MD Date/Time: 04/30/25 12:46 Surgeon: Luly Victoria MD Pre Op Diagnosis: Rt Ing Hernia Patient Data Age: 35 Gender: M Height: 1.78 m Weight: 93.9 kg Last Vital Signs Temp 98.3 F 04/30/25 11:15 Pulse 55 L 04/30/25 11:15 Resp 16 04/30/25 11:15 BP 114/70 04/30/25 11:15 Pulse Ox 99 04/30/25 11:15 O2 Del Method Room Air 04/30/25 11:15 Allergies Allergy/AdvReac Type Severity Reaction Status Date / Time No Known Allergies Allergy Verified 04/30/25 12:28 Home Medications ?Medication ?Instructions ?Recorded ?Confirmed ?Type mometasone 50 mcg/actuation HFA 1 puff inhalation DAILY 04/01/25 04/17/25 History aerosol inhaler (Asmanex HFA) cetirizine 10 mg capsule (Allergy 10 mg PO DAILY 04/17/25 04/30/25 History Relief (cetirizine)) escitalopram oxalate 5 mg tablet 5 mg PO DAILY 04/17/25 04/30/25 History (Lexapro) Patient hx anesthesia problems: none Family hx anesthesia problems: none Results Review: All pre-operative results and documents have been reviewed as part of the pre-operative evaluation. [facility] Past Medical History Medical History Hx of appendicitis 2021 Hx of seasonal allergies History of asthma Patient denies significant medical history Family History Family History Father Carcinoma of colon Other Diabetes mellitus Family history of malignant neoplasm of breast Malignant neoplasm of prostate Social History Social History Smoking status: Never smoker Smokeless tobacco user: other Additional smoking assessment comments: use nicotine pouches 8/day Alcohol intake: current Drinks per week: 4 Substance use: never Substance use type: does not use Living arrangements: with family Occupation/Education: occupation Additional occupation/education comments: [employer] Spiritual care concerns: No Anes - Eval Final PreProcedure Day of Procedure 04/30/25 12:46 Patient weight: overweight Lungs: normal air movement Airway: Mallampati scale class 1 Neurological: alert and oriented Last oral intake: >/= 8 hours ASA classification: II Emergent: no Anesthetic plan: proceed Anesthesia type and monitoring: general ETT and standard monitoring Results Review: All pre-operative results and documents have been reviewed as part of the pre-operative evaluation. Mild asthma, stable of recent. Active without cp or sob at F45. Informed Consent: The patient's anesthetic plan and its attendant risks and benefits were discussed with the patient/family/POA. Questions were solicited and answers provided to the satisfaction of the patient/family/POA.
[2025-04-30] MEDS: ceFAZolin 2 GM in SODIUM CHLORIDE 0.9% IV 50 ML 100 ML IVPB (13:15)
--- NOTE | 2025-04-30 14:45 | P.OP_ITS ---
Procedure Note - Detailed Date of Procedure 04/30/25 Pre-op Diagnosis right inguinal hernia Post-op Diagnosis Same Procedure Performed robotic assisted right inguinal hernia repair with mesh Surgeon Luly Victoria MD Anesthesia General and Local Indications 35 y/o M c RIH Findings moderate sized indirect RIH Description of Procedure Patient was brought into the operating room and placed in the supine position. After adequate induction of general anesthesia, the patient was prepped and draped in normal sterile fashion. A time-out was then done to verify the patient's identity, as well as the procedure being performed. I began by making a 8 mm incision in the supraumbilical region, a Veress needle was then placed into the peritoneal cavity. CO2 gas was then insufflated and after adequate pneumoperitoneum was achieved, the Veress needle was removed. I then placed an 8 mm trocar through this incision. I then placed the endoscope through this trocar site and under direct visualization placed 2 further 8 mm ports in the right and left mid abdomen. The [email or web address] robot was then docked to the 3 trocar sites. I then scrubbed out and went to the robotic console. Upon examining the pelvis, it was noted that the patient had a moderate sized right inguinal hernia. The left side was examined and no hernia defect was noted. I began by making a preperitoneal flap approximately 6 cm superior to the defect. This flap was carried medially past the umbilical ligaments in laterally to the transversalis. It then began dissection of my medial compartment taking this down to the pubic tubercle. I then began the lateral dissection taking this down to the transversalis fascia. Once these compartments were achieved, I began dissection around the cord structures. A moderate sized indirect hernia w as noted at this point. Using careful dissection, was able to reduce indirect hernia sac off the cord structures. Once this was adequately done, I went ahead and placed a large piece of 3D Max mesh into the abdominal cavity. The mesh was carefully positioned, centering the center of the mesh over the indirect defect. Once this was done, was very satisfied with our repair. Using 3-0 Vicryl sut ures, I tacked the mesh medially to Migue's ligament. Two lateral sutures were placed from the mesh to the transversalis fascia. I then closed the peritoneal flap with a running 2.0 V Lock suture. The abdomen was then desufflated, and all ports were removed. All incisions were then closed with the 4.0 monocryl suture. Dermabond was placed on each wound. The patient tolerated the procedure well, was extubated in the operating room postoperatively, and will now be transferred to the recovery room in stable condition. Implants large 3DMax mesh Estimated Blood Loss 10 Drains No Packing No Pathology None sent Complications No immediate complications Condition Stable Disposition PACU [facility] Billing Surgery - Charge Forward: Surgery Billing
[2025-04-30] MEDS: fentaNYL CITRATE INJ (*CRX) 100 MCG/2 ML VIAL 25 MCG IV PUSH ×3 (15:36→15:42)
== END 2025-04-30 16:51 | disposition home or self-care (01) ==
PROVIDERS: PCP Nurse Practitioner Family; Visit Provider Surgery
PROC: 8E0Y4CZ Robotic Assisted Procedure of Lower Extremity, Percutaneous Endoscopic Approach (ICD-10-PCS; CPT 49650; principal; 2025-04-30 13:00)
DX: K40.90 Unilateral inguinal hernia, without obstruction or gangrene, not specified as recurrent (principal); J45.909 Unspecified asthma, uncomplicated; F17.290 Nicotine dependence, other tobacco product, uncomplicated; Z79.51 Long term (current) use of inhaled steroids; Z98.890 Other specified postprocedural states; Z80.0 Family history of malignant neoplasm of digestive organs; Z80.3 Family history of malignant neoplasm of breast; Z80.42 Family history of malignant neoplasm of prostate
CPT/HCPCS: 49650; S2900; J0690; A9270; C1781; J1171; J1885; J2003; J2250; J2405; J2704; J3010; J7030; J7120